=== PATIENT | female | born 1985 | race Asian ===

== ENCOUNTER 2018-08-21 16:17 | Inpatient (IN) | payer OTHER ==
[~2018-08-21] VITALS: Ht 154.9 cm; Wt 53.0 kg
[~2018-08-21 16:17] MED LIST: FERR325T18 PO; IBUP-1222 PO; IBUP-1223 PO; OXYC-302 PO; PREN1TAB60 PO; SENN-25 PO
[2018-08-21] MEDS ORDERED: OXYTOCIN 30U/ 0.9% NaCL 500ML 500 ML IV ONE (17:36)
[2018-08-21] MEDS ORDERED: FENTANYL PF 500 MCG, BUPIVACAINE/PF 0.5%, 30ML 62.5 ML in SODIUM CHLORIDE 0.9% 177.5 ML EPIDCONT SCH (17:36)
[2018-08-21] MEDS: LACTATED RINGERS 1,000 ML IVBOLUS PRN ×2 (17:51→20:16)
[2018-08-21] MEDS ORDERED: NEWBORN KIT ONE (17:57)
[2018-08-21] MEDS ORDERED: OXYTOCIN 30U/ 0.9% NaCL 500ML 500 ML ONE ×2 (17:57→20:43)
[2018-08-21] MEDS ORDERED: LIDOCAINE 1%, 20ML ONE (17:57)
[2018-08-21] MEDS ORDERED: MISOPROSTOL 200 MCG TABLET ONE (17:57)
[2018-08-21] MEDS ORDERED: TERBUTALINE 1 MG/ML, 1ML IVPush PRN (18:00)
[2018-08-21] MEDS ORDERED: FENTANYL PF 100 MCG/2ML IVPush PRN (18:00)
[2018-08-21] MEDS ORDERED: FENTANYL PF 100 MCG/2ML IV PRN (18:00)
[2018-08-21] MEDS ORDERED: FENTANYL PF 100 MCG/2ML ONE (18:21)
[2018-08-21] MEDS: LACTATED RINGERS 1,000 ML IV SCH ×4 (18:37→21:11)
[2018-08-21 18:40] LABS: BASOPHILS # (AUTO) 0.05 x10^3/uL (0-0.1); BASOPHILS % (AUTO) 0 % (0-1); EOSINOPHILS # (AUTO) 0.02 x10^3/uL (0-0.4); EOSINOPHILS % (AUTO) 0 % (1-7); LYMPHOCYTES # (AUTO) 2.07 x10^3/uL (1-3.4); LYMPHOCYTES % (AUTO) 17 % (22-44); MD NO; MEAN CORPUSCULAR HEMOGLOBIN 28.8 pg (27.0-34.8); MEAN CORPUSCULAR HGB CONC 32.9 g/dL (32.4-35.8); MEAN CORPUSCULAR VOLUME 87.4 fL (80-100); MONOCYTES # (AUTO) 0.55 x10^3/uL (0.2-0.8); MONOCYTES % (AUTO) 5 % (2-9); NEUTROPHILS # (AUTO) 9.61 x10^3/uL (1.8-6.8); NEUTROPHILS % (AUTO) 78 % (42-75); PLATELET COUNT 168 x10^3/uL (130-400); RED BLOOD COUNT 5.42 x10^6/uL (3.82-5.3); RED CELL DISTRIBUTION WIDTH 14.8 % (9.6-15.2)
[2018-08-21] MEDS ORDERED: EPHEDRINE 50 MG/ML, 1ML IVPush PRN (19:30)
[2018-08-21] MEDS ORDERED: NALOXONE 0.4 MG/ML, 1ML IVPush PRN (19:30)
[2018-08-21] MEDS ORDERED: LACTATED RINGERS 1,000 ML IVBOLUS PRN (19:30)
[2018-08-21] MEDS ORDERED: FENTANYL/BUPIV./NS/PF 250 ML EPIDCONT SCH (19:30)
[2018-08-21] MEDS: EPHEDRINE 50 MG/ML, 1ML IVPush PRN ×4 (19:46→22:10)
[2018-08-22] MEDS: LACTATED RINGERS 1,000 ML IV SCH ×4 (00:41→19:30)
[2018-08-22] MEDS: EPHEDRINE 50 MG/ML, 1ML IVPush PRN (02:29)
[2018-08-22] MEDS ORDERED: ACETAMINOPHEN 325 MG TABLET PO PRN ×2 (04:30)
[2018-08-22] MEDS ORDERED: ONDANSETRON 2MG/ML, 2ML IV PRN (04:30)
[2018-08-22] MEDS ORDERED: OXYTOCIN 10 UNITS/ML, 1ML IM PRN (04:30)
[2018-08-22] MEDS ORDERED: MAGNESIUM HYDROXIDE 8%, 30ML UDC PO PRN (04:30)
[2018-08-22] MEDS ORDERED: OXYcodone/APAP 5/325MG TABLET PO PRN (04:30)
[2018-08-22] MEDS ORDERED: CALCIUM CARBONATE 500 MG TAB.CHEW PO PRN (04:30)
[2018-08-22] MEDS ORDERED: METHYLERGONOVINE 0.2 MG/ML IM PRN (04:30)
[2018-08-22] MEDS: OXYTOCIN 30U/ 0.9% NaCL 500ML 500 ML IV SCH ×8 (05:00→14:23)
[2018-08-22] MEDS ORDERED: OXYTOCIN 30U/ 0.9% NaCL 500ML 500 ML ONE (05:04)
[2018-08-22] MEDS ORDERED: IBUPROFEN 600 MG TABLET ONE (07:33)
[2018-08-22] MEDS: IBUPROFEN 600 MG TABLET PO PRN ×3 (07:34→19:24)
[2018-08-22 08:00] VITALS: BP 113/75
[2018-08-22 11:58] LABS: MEAN CORPUSCULAR HEMOGLOBIN 27.7 pg (27.0-34.8); MEAN CORPUSCULAR VOLUME 86.4 fL (80-100); MEAN PLATELET VOLUME 10.2 fL (7.4-10.4); PLATELET COUNT 146 x10^3/uL (130-400); RED BLOOD COUNT 4.78 x10^6/uL (3.82-5.3); RED CELL DISTRIBUTION WIDTH 14.9 % (9.6-15.2)
[2018-08-22 12:25] LABS: MD YES
[2018-08-22 12:26] LABS: BAND#(MANUAL) 2.38 x10^3/uL; BANDS%(MANUAL) 14 % (0-7); LYMPH#(MANUAL) 1.36 x10^3/uL (1-3.4); LYMPHS% (MANUAL) 8 % (22-44); METAMYELOCYTES# (MANUAL) 0.17 x10^3/uL (0-0); METAMYELOCYTES% (MANUAL) 1 % (0-1); MONOS#(MANUAL) 1.02 x10^3/uL (0.3-2.7); MONOS% (MANUAL) 6 % (2-9); SEG#(MANUAL) 12.07 x10^3/uL (1.8-6.8); SEGS% (MANUAL) 71 % (42-75)
[2018-08-22 12:27] LABS: <PLATELET ESTIMATE> ADEQUATE; <PLT MORPHOLOGY> NORMAL PLT MORPH; ANISOCYTOSIS 1+; OVALOCYTES 1+; TEAR DROPS 1+
[2018-08-22] MEDS: PRENATAL VIT/IRON/FA 1 EACH TABLET PO SCH (12:39)
[2018-08-22] MEDS: DOCUSATE 100 MG CAPSULE PO PRN ×2 (12:39→19:24)
[2018-08-22 12:42] VITALS: BP 111/74
[2018-08-22 16:45] VITALS: BP 112/74
[2018-08-22 20:00] VITALS: BP 114/75
[2018-08-22 23:50] VITALS: BP 116/76
[2018-08-23] MEDS: OXYTOCIN 30U/ 0.9% NaCL 500ML 500 ML IV SCH ×2 (00:23→10:23)
[2018-08-23] MEDS: IBUPROFEN 600 MG TABLET PO PRN ×2 (01:16→08:15)
[2018-08-23] MEDS: OXYcodone/APAP 5/325MG TABLET PO PRN ×2 (01:47→08:14)
[2018-08-23] MEDS: LACTATED RINGERS 1,000 ML IV SCH ×2 (03:30→10:24)
[2018-08-23 07:15] VITALS: BP 110/64
[2018-08-23] MEDS: PRENATAL VIT/IRON/FA 1 EACH TABLET PO SCH (08:15)
[2018-08-23] MEDS: DOCUSATE 100 MG CAPSULE PO PRN (08:15)
[2018-08-23] MEDS ORDERED: OXYC-302 PO (09:34)
[2018-08-23] MEDS ORDERED: IBUP-1222 PO (09:34)
== END 2018-08-23 12:45 | disposition home or self-care (01) | DRG 807 ==
LOC: LDOP 16:17 → LDIP 17:36 → 2NW 08-22 08:29
PROVIDERS: ADMIT Obstetrics & Gynecology; ATTEND Obstetrics & Gynecology
PROC: 10E0XZZ Delivery of Products of Conception, External Approach (ICD-10-PCS; principal; 2018-08-22)
PROC: 0KQM0ZZ Repair Perineum Muscle, Open Approach (ICD-10-PCS; 2018-08-22)
PROC: 10907ZC Drainage of Amniotic Fluid, Therapeutic from Products of Conception, Via Natural or Artificial Opening (ICD-10-PCS; 2018-08-22)
PROC: 10H07YZ Insertion of Other Device into Products of Conception, Via Natural or Artificial Opening (ICD-10-PCS; 2018-08-22)
PROC: 3E0R3BZ Introduction of Anesthetic Agent into Spinal Canal, Percutaneous Approach (ICD-10-PCS; 2018-08-22)
PROC: 00HU33Z Insertion of Infusion Device into Spinal Canal, Percutaneous Approach (ICD-10-PCS; 2018-08-22)
DX: O70.1 Second degree perineal laceration during delivery (principal); Z37.0 Single live birth; Z3A.37 37 weeks gestation of pregnancy
CPT/HCPCS: 36415; 85025; 86850; 86900; G0378; J3010; J2590; J7120

== ENCOUNTER 2020-07-21 20:42 | Emergency (ER) | payer SELFPAY ==
[~2020-07-21] VITALS: Ht 154.9 cm; Wt 56.8 kg
[~2020-07-21 20:42] MED LIST changes: -OXYC-302 PO; +OXYC1TAB14 PO
[2020-07-21 20:49] VITALS: BP 129/84
[2020-07-21] MEDS ORDERED: DIPH,PERTUSS(ACELL),TET VAC/PF 0.5 ML IM-VACC ONE (21:00)
--- NOTE | 2020-07-21 23:29 | NUR ---
NA X1
--- NOTE | 2020-07-22 00:03 | NUR ---
NA X 2
--- NOTE | 2020-07-22 00:19 | NUR ---
NA X 3. PT ELOPED
== END 2020-07-22 00:21 | disposition left against medical advice (07) ==
LOC: ED 21:00
DX: M25.571 Pain in right ankle and joints of right foot (principal)
CPT/HCPCS: 99283

== ENCOUNTER 2020-07-22 13:18 | Emergency (ER) | payer SELFPAY ==
[~2020-07-22] VITALS: Ht 154.9 cm; Wt 55.3 kg
[2020-07-22 13:24] VITALS: BP 109/69
[2020-07-22] MEDS ORDERED: LIDOCAINE-MPF 1%, 5ML INFIL ONE (14:30)
--- NOTE | 2020-07-22 15:04 | NUR ---
DIET COUNSELOR: PT TO ROOM FROM [facility]
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
[2020-07-22] MEDS ORDERED: LIDOCAINE-MPF 1%, 5ML ONE (15:16)
--- NOTE | 2020-07-22 15:21 | NUR ---
[facility]PA AT BEDSIDE FOR I&D.
[2020-07-22] MEDS ORDERED: DIPH,PERTUSS(ACELL),TET VAC/PF 0.5 ML IM-VACC ONE ×2 (15:33→16:00)
[2020-07-22] MEDS ORDERED: BACITRACIN ZINC OINT 500U/GM, 0.9 GM ONE (15:52)
--- NOTE | 2020-07-22 16:02 | NUR ---
Patient given discharge instructions and prescription and they have confirmed that they understand the instructions. Patient ambulatory with steady gait and use of crutches. NAD, all questions answered appropriately, denies additional needs at this time. No personal belongings left in room after discharge.
== END 2020-07-22 16:03 | disposition home or self-care (01) ==
LOC: ED 15:55
DX: S91.331A Puncture wound without foreign body, right foot, initial encounter (principal); W22.8XXA Striking against or struck by other objects, initial encounter; Y93.89 Activity, other specified; Y92.89 Other specified places as the place of occurrence of the external cause; Y99.8 Other external cause status
CPT/HCPCS: 90471; 90715; 99283